=== PATIENT | female | born 1940 | race Caucasian/White ===

== ENCOUNTER 2023-04-28 23:44 | Inpatient (IN) | payer OTHER ==
[~2023-04-28] VITALS: Ht 170.2 cm; Wt 147.9 kg
[2023-04-28 23:44] VITALS: BP_SYST 94; PULSE 117; RESP 21; TEMP 98; O2SAT 97
[~2023-04-28 23:44] MED LIST: APIX5TAB4 PO; CLOT24CR2 TP; DOXY-244 PO; FURO-149 PO; HYDR12.55 PO; LOSA-413 PO; LOVA40TA75 PO; MULT-1117 PO; OMEG100037 PO; TRAM300C3 PO
[2023-04-29] MEDS ORDERED: NACL 0.9% 2,000 ML IV ONE (00:45)
[2023-04-29 00:55] LABS: CLARITY/URINE CLOUDY (CLEAR); COLOR,URINE Y (YELLOW)
[2023-04-29 00:56] LABS: BILIRUBIN,URINE 1+ (NEGATIVE); BLOOD, URINE 1+ (NEGATIVE); GLUCOSE,URINE NEGATIVE (NEGATIVE); KETONES,URINE NEGATIVE (NEGATIVE); LEUKOCYTE ESTERASE ,URINE 1+ (NEGATIVE); NITRITE, URINE POSITIVE (NEGATIVE); PROTEIN URINE TRACE (NEGATIVE)
[2023-04-29 00:57] LABS: UROBILINOGEN,URINE 0.2 (0.2-1.0)
[2023-04-29 01:00] LABS: BACTERIA,URINE MANY /HPF (None Seen); WBC,URINE >100 /HPF (0-3)
[2023-04-29] MEDS ORDERED: LOSA1TAB43 PO (01:01)
[2023-04-29] MEDS ORDERED: APIX5TAB4 PO (01:02)
[2023-04-29] MEDS ORDERED: CALMO120 TP (01:05)
[2023-04-29] MEDS ORDERED: VITA113O5 TP (01:07)
[2023-04-29] MEDS ORDERED: [UNRECOGNIZED DRUG - OTHER] TP (01:09)
[2023-04-29] MEDS ORDERED: LOPE2CAP PO (01:12)
[2023-04-29] MEDS ORDERED: ONDA-8 TL (01:14)
[2023-04-29] MEDS ORDERED: GUAI-1196 PO (01:15)
[2023-04-29 01:20] LABS: ANION GAP 17 (5-15); CALCIUM 7.5 mg/dL (8.4-11.0); CARBON DIOXIDE 23 mmol/L (23-29); CHLORIDE 93 mmol/L (98-107); CREATININE 5.07 mg/dL (0.55-1.30); GLUCOSE 104 mg/dL (74-106); POTASSIUM 3.1 mmol/L (3.5-5.1); SODIUM SERUM 133 mmol/L (136-145); UREA NITROGEN, BLOOD 76 mg/dL (8-21)
[2023-04-29 01:23] LABS: BASOPHILS % (AUTO) 0.4 % (0.0-2.0); EOSINOPHILS # (AUTO) 1.3 K/uL (0.0-0.4); EOSINOPHILS % (AUTO) 12.4 % (0.0-4.0); HEMATOCRIT 43.6 % (36-48); HEMOGLOBIN 14.7 g/dL (12.0-16.0); LYMPHOCYTES # (AUTO) 1.6 K/uL (1.0-5.5); LYMPHOCYTES % (AUTO) 14.9 % (20.5-51.5); MEAN CORPUSCULAR HEMOGLOBIN 29 pg (27-31); MEAN CORPUSCULAR HGB CONC 34 % (32-36); MEAN CORPUSCULAR VOLUME 87 fL (79.0-98.0); MONOCYTES # (AUTO) 0.6 K/uL (0.0-1.0); MONOCYTES % (AUTO) 5.5 % (1.7-9.3); NEUTROPHILS # (AUTO) 7.1 K/uL (1.8-7.7); NEUTROPHILS % (AUTO) 66.8 % (40.0-70.0); PLATELET COUNT (AUTO) 248 K/uL (130-430); RED BLOOD CELL COUNT(AUTO) 5.03 MIL/uL (4.2-6.2); RED CELL DISTRIBUTION WIDTH 17.4 % (9.0-15.0); WHITE BLOOD COUNT (AUTO) 10.7 K/uL (4.8-10.8)
[2023-04-29 01:28] LABS: ALANINE AMINOTRANSFERASE 13 U/L (12-78); ALBUMIN 2.5 g/dL (3.4-4.8); ASPARTATE AMINOTRANSFERASE 16 U/L (10-37); TOTAL BILIRUBIN 0.6 mg/dL (0.0-1.0); TOTAL PROTEIN, SERUM 6.1 g/dL (6.4-8.3)
[2023-04-29] MEDS ORDERED: cefTRIAXone 2 GM VIAL ONE (02:37)
[2023-04-29] MEDS ORDERED: HYDROcodone/ACETAMIN 5-325 MG TAB (NORCO/ VICODIN) PO PRN (03:30)
[2023-04-29] MEDS ORDERED: HYDROcodone/ACETAMIN 10-325 MG TAB PO PRN (03:30)
[2023-04-29] MEDS ORDERED: LORazepam 2 MG/ML VIAL IVP PRN (03:30)
[2023-04-29] MEDS ORDERED: ONDANSETRON 4 MG ODT TAB TL PRN (03:30)
[2023-04-29] MEDS ORDERED: NALOXONE HCL 0.4 MG/ML AMP (NARCAN) IVP PRN ×2 (03:30)
[2023-04-29] MEDS ORDERED: guaiFENesin/DEXTROMETHORPHAN 118 ML PO PRN (03:30)
[2023-04-29] MEDS ORDERED: ACETAMINOPHEN 325 MG TABLET PO PRN (03:30)
[2023-04-29] MEDS ORDERED: ONDANSETRON HCL 4 MG/2 ML VIAL IVP PRN (03:30)
[2023-04-29 04:05] VITALS: BP_SYST 99; PULSE 101; RESP 19; TEMP 97.5
[2023-04-29] MEDS: D5/0.45 NS 1,000 ML IV SCH ×2 (04:39→12:45)
[2023-04-29] MEDS ORDERED: guaiFENesin/DEXTROMETHORPHAN 10 ML UDC PO PRN (07:15)
[2023-04-29 08:00] VITALS: BP_SYST 110; PULSE 91; RESP 17; TEMP 97.3; O2SAT 97
[2023-04-29] MEDS ORDERED: ANTIFUNGAL CLEAR OINTMENT TP SCH (09:00)
[2023-04-29] MEDS ORDERED: HYDROCHLOROTHIAZIDE 12.5 MG CAPSULE (HCTZ) PO SCH (09:00)
[2023-04-29] MEDS ORDERED: NON-FORMULARY MEDICATION (Losartan/Hctz* (Losartan-Hctz 100-12.5 Mg Tab*) 1 EACH) PO SCH (09:00)
[2023-04-29] MEDS ORDERED: LOSARTAN POTASSIUM 50 MG TABLET (COZAAR) PO SCH (09:00)
[2023-04-29] MEDS: APIXABAN 2.5 MG TABLET PO SCH ×2 (10:19→20:21)
[2023-04-29] MEDS: MENTHOL/ZINC OXIDE 113 GM OINT. TP SCH (10:20)
[2023-04-29] MEDS: VITS A AND D TP SCH (10:21)
[2023-04-29] MEDS: LANOLIN TP SCH (10:21)
[2023-04-29] MEDS: WHITE PET TP SCH (10:21)
[2023-04-29 11:30] VITALS: BP_SYST 105; PULSE 100; RESP 19; TEMP 98; O2SAT 98
[2023-04-29] MEDS ORDERED: POTASSIUM CHLORIDE 20 MEQ TAB.PRT.SR PO ONE (14:45)
[2023-04-29] MEDS ORDERED: NYSTATIN 15 GM TOPICAL POWDER TP ONE (14:45)
[2023-04-29 17:30] VITALS: BP_SYST 90; PULSE 102; RESP 18; TEMP 97.8; O2SAT 94
[2023-04-29 20:00] VITALS: BP_SYST 108; PULSE 101; RESP 18; TEMP 97.3; O2SAT 98
[2023-04-29] MEDS: DOXYCYCLINE HYCLATE 100 MG CAPSULE PO SCH (20:21)
[2023-04-30] VITALS: BP_SYST 110; PULSE 98; RESP 17; TEMP 97.8; O2SAT 97
[2023-04-30] MEDS: D5/0.45 NS 1,000 ML IV SCH ×3 (03:24→18:08)
[2023-04-30 04:55] LABS: BASOPHILS % (AUTO) 0.5 % (0.0-2.0); EOSINOPHILS # (AUTO) 1.4 K/uL (0.0-0.4); EOSINOPHILS % (AUTO) 16.9 % (0.0-4.0); HEMATOCRIT 41.2 % (36-48); HEMOGLOBIN 13.3 g/dL (12.0-16.0); LYMPHOCYTES # (AUTO) 1.2 K/uL (1.0-5.5); LYMPHOCYTES % (AUTO) 15.2 % (20.5-51.5); MEAN CORPUSCULAR HEMOGLOBIN 29 pg (27-31); MEAN CORPUSCULAR HGB CONC 32 % (32-36); MEAN CORPUSCULAR VOLUME 88 fL (79.0-98.0); MONOCYTES # (AUTO) 0.7 K/uL (0.0-1.0); MONOCYTES % (AUTO) 9.1 % (1.7-9.3); NEUTROPHILS # (AUTO) 4.7 K/uL (1.8-7.7); NEUTROPHILS % (AUTO) 58.3 % (40.0-70.0); PLATELET COUNT (AUTO) 224 K/uL (130-430); RED BLOOD CELL COUNT(AUTO) 4.66 MIL/uL (4.2-6.2); RED CELL DISTRIBUTION WIDTH 17.4 % (9.0-15.0)
[2023-04-30 05:18] LABS: ALANINE AMINOTRANSFERASE 15 U/L (12-78); ALBUMIN 2.2 g/dL (3.4-4.8); ANION GAP 13 (5-15); ASPARTATE AMINOTRANSFERASE 16 U/L (10-37); CALCIUM 7.5 mg/dL (8.4-11.0); CARBON DIOXIDE 24 mmol/L (23-29); CHLORIDE 98 mmol/L (98-107); CREATININE 3.56 mg/dL (0.55-1.30); GLUCOSE 92 mg/dL (74-106); PHOSPHORUS 5.4 mg/dL (2.7-4.5); POTASSIUM 3.2 mmol/L (3.5-5.1); SODIUM SERUM 135 mmol/L (136-145); TOTAL BILIRUBIN 0.3 mg/dL (0.0-1.0); TOTAL PROTEIN, SERUM 5.4 g/dL (6.4-8.3); UREA NITROGEN, BLOOD 73 mg/dL (8-21)
[2023-04-30 08:00] VITALS: BP_SYST 117; PULSE 80; RESP 16; TEMP 97.3; O2SAT 96
[2023-04-30] MEDS: APIXABAN 2.5 MG TABLET PO SCH ×2 (09:17→20:52)
[2023-04-30] MEDS: DOXYCYCLINE HYCLATE 100 MG CAPSULE PO SCH ×2 (09:18→20:42)
[2023-04-30] MEDS: NYSTATIN 15 GM TOPICAL POWDER TP SCH (09:24)
[2023-04-30] MEDS: MENTHOL/ZINC OXIDE 113 GM OINT. TP SCH (09:25)
[2023-04-30] MEDS: LANOLIN TP SCH (09:26)
[2023-04-30] MEDS: VITS A AND D TP SCH (09:26)
[2023-04-30] MEDS: WHITE PET TP SCH (09:26)
[2023-04-30] MEDS ORDERED: POTASSIUM CHLORIDE 20 MEQ TAB.PRT.SR PO ONE (09:30)
[2023-04-30 12:00] VITALS: BP_SYST 110; PULSE 85; RESP 18; TEMP 98; O2SAT 96
[2023-04-30 16:00] VITALS: BP_SYST 111; PULSE 80; RESP 18; TEMP 97.8; O2SAT 98
[2023-04-30 19:00] VITALS: O2SAT 99
[2023-04-30 20:00] VITALS: BP_SYST 123; PULSE 93; RESP 16; TEMP 98.2; O2SAT 99
[2023-05-01 00:15] VITALS: BP_SYST 116; BP_SYST 125; PULSE 71; RESP 17; TEMP 98.6; O2SAT 98
[2023-05-01 04:21] LABS: ERYTHROCYTE SEDIMENTATION RATE 26 MM/HR (0-20)
[2023-05-01 04:24] LABS: BASOPHILS % (AUTO) 0.5 % (0.0-2.0); EOSINOPHILS # (AUTO) 1.2 K/uL (0.0-0.4); EOSINOPHILS % (AUTO) 16.7 % (0.0-4.0); HEMATOCRIT 41.5 % (36-48); HEMOGLOBIN 13.6 g/dL (12.0-16.0); LYMPHOCYTES # (AUTO) 1.7 K/uL (1.0-5.5); LYMPHOCYTES % (AUTO) 23.4 % (20.5-51.5); MEAN CORPUSCULAR HEMOGLOBIN 29 pg (27-31); MEAN CORPUSCULAR HGB CONC 33 % (32-36); MEAN CORPUSCULAR VOLUME 88 fL (79.0-98.0); MONOCYTES # (AUTO) 0.9 K/uL (0.0-1.0); MONOCYTES % (AUTO) 12.7 % (1.7-9.3); NEUTROPHILS # (AUTO) 3.3 K/uL (1.8-7.7); NEUTROPHILS % (AUTO) 46.7 % (40.0-70.0); PLATELET COUNT (AUTO) 262 K/uL (130-430); RED BLOOD CELL COUNT(AUTO) 4.71 MIL/uL (4.2-6.2); RED CELL DISTRIBUTION WIDTH 17.7 % (9.0-15.0); WHITE BLOOD COUNT (AUTO) 7.2 K/uL (4.8-10.8)
[2023-05-01 04:49] LABS: ANION GAP 10 (5-15); CALCIUM 8.1 mg/dL (8.4-11.0); CARBON DIOXIDE 27 mmol/L (23-29); CHLORIDE 104 mmol/L (98-107); GLUCOSE 91 mg/dL (74-106); POTASSIUM 3.4 mmol/L (3.5-5.1); SODIUM SERUM 141 mmol/L (136-145); UREA NITROGEN, BLOOD 57 mg/dL (8-21)
[2023-05-01] MEDS: D5/0.45 NS 1,000 ML IV SCH ×2 (05:22→23:51)
[2023-05-01 08:00] VITALS: BP_SYST 134; PULSE 98; RESP 16; TEMP 98.1; O2SAT 98
[2023-05-01] MEDS: VITS A AND D TP SCH (09:00)
[2023-05-01] MEDS: LANOLIN TP SCH (09:00)
[2023-05-01] MEDS: MENTHOL/ZINC OXIDE 113 GM OINT. TP SCH (09:00)
[2023-05-01] MEDS: NYSTATIN 15 GM TOPICAL POWDER TP SCH (09:00)
[2023-05-01] MEDS: WHITE PET TP SCH (09:00)
[2023-05-01] MEDS: DOXYCYCLINE HYCLATE 100 MG CAPSULE PO SCH ×2 (09:51→21:03)
[2023-05-01] MEDS: APIXABAN 2.5 MG TABLET PO SCH ×2 (09:52→21:04)
[2023-05-01 11:22] VITALS: BP_SYST 116; PULSE 94; RESP 17; TEMP 97.7; O2SAT 99
[2023-05-01] MEDS: LEVOFLOXACIN 250 MG/D5W 50 ML IV SCH (13:29)
[2023-05-01 16:30] VITALS: BP_SYST 120; PULSE 90; RESP 17; TEMP 98; O2SAT 98
[2023-05-01 20:00] VITALS: BP_SYST 131; PULSE 80; RESP 18; TEMP 97.3; O2SAT 97
[2023-05-01] MEDS: terbinafine HCL 30 GM CREAM.GM. TP SCH (21:09)
[2023-05-02] VITALS (10 sets, daily range): BP systolic 88–150; PULSE 60–112; RESP 16–18; TEMP 97–98.9; O2SAT 93–99
[2023-05-02] MEDS: D5/0.45 NS 1,000 ML IV SCH ×3 (00:45→21:18)
[2023-05-02 05:12] LABS: ANION GAP 9 (5-15); BASOPHILS # (AUTO) 0.1 K/uL (0.0-0.2); BASOPHILS % (AUTO) 0.8 % (0.0-2.0); CALCIUM 8.2 mg/dL (8.4-11.0); CARBON DIOXIDE 27 mmol/L (23-29); CHLORIDE 105 mmol/L (98-107); CREATININE 1.24 mg/dL (0.55-1.30); EOSINOPHILS # (AUTO) 1.1 K/uL (0.0-0.4); EOSINOPHILS % (AUTO) 16.3 % (0.0-4.0); GLUCOSE 141 mg/dL (74-106); HEMATOCRIT 40.7 % (36-48); HEMOGLOBIN 13.4 g/dL (12.0-16.0); LYMPHOCYTES # (AUTO) 1.6 K/uL (1.0-5.5); LYMPHOCYTES % (AUTO) 23.4 % (20.5-51.5); MEAN CORPUSCULAR HEMOGLOBIN 29 pg (27-31); MEAN CORPUSCULAR HGB CONC 33 % (32-36); MEAN CORPUSCULAR VOLUME 88 fL (79.0-98.0); MONOCYTES # (AUTO) 0.8 K/uL (0.0-1.0); MONOCYTES % (AUTO) 11.4 % (1.7-9.3); NEUTROPHILS # (AUTO) 3.3 K/uL (1.8-7.7); NEUTROPHILS % (AUTO) 48.1 % (40.0-70.0); PLATELET COUNT (AUTO) 239 K/uL (130-430); RED BLOOD CELL COUNT(AUTO) 4.61 MIL/uL (4.2-6.2); RED CELL DISTRIBUTION WIDTH 17.2 % (9.0-15.0); SODIUM SERUM 141 mmol/L (136-145); UREA NITROGEN, BLOOD 36 mg/dL (8-21); WHITE BLOOD COUNT (AUTO) 6.9 K/uL (4.8-10.8)
[2023-05-02 05:44] LABS: POTASSIUM 2.9 mmol/L (3.5-5.1)
[2023-05-02] MEDS ORDERED: POTASSIUM CHLORIDE 20 MEQ TAB.PRT.SR PO ONE ×2 (06:15→10:15)
[2023-05-02] MEDS: MENTHOL/ZINC OXIDE 113 GM OINT. TP SCH (08:26)
[2023-05-02] MEDS: DOXYCYCLINE HYCLATE 100 MG CAPSULE PO SCH (08:26)
[2023-05-02] MEDS: terbinafine HCL 30 GM CREAM.GM. TP SCH ×2 (08:27→21:16)
[2023-05-02] MEDS: WHITE PET TP SCH (08:27)
[2023-05-02] MEDS: LANOLIN TP SCH (08:27)
[2023-05-02] MEDS: NYSTATIN 15 GM TOPICAL POWDER TP SCH (08:27)
[2023-05-02] MEDS: VITS A AND D TP SCH (08:27)
[2023-05-02] MEDS: APIXABAN 2.5 MG TABLET PO SCH ×2 (08:29→21:13)
[2023-05-02] MEDS: LEVOFLOXACIN 250 MG/D5W 50 ML IV SCH (14:49)
[2023-05-02] MEDS: ERTAPENEM SODIUM 1 GM in NS 50 ML IV SCH (14:59)
[2023-05-02] MEDS: NITROFURANTOIN MONOHYD/M-CRYST 100 MG CAPSULE (MacroBID) PO SCH (21:12)
[2023-05-02 23:34] LABS: BILIRUBIN,URINE NEGATIVE (NEGATIVE); CLARITY/URINE Clear (CLEAR); COLOR,URINE YELLOW (YELLOW); GLUCOSE,URINE NEGATIVE (NEGATIVE); NITRITE, URINE NEGATIVE (NEGATIVE); PH,URINE 5.5 (5.0-8.0); PROTEIN URINE NEGATIVE (NEGATIVE); UROBILINOGEN,URINE 0.2 (0.2-1.0)
[2023-05-02 23:49] LABS: KETONES,URINE NEGATIVE (NEGATIVE)
[2023-05-02 23:50] LABS: BLOOD, URINE TRACE (NEGATIVE); LEUKOCYTE ESTERASE ,URINE NEGATIVE (NEGATIVE)
[2023-05-03 00:10] LABS: BACTERIA,URINE RARE /HPF (None Seen); WBC,URINE 0-3 /HPF (0-3); YEAST,URINE Few /HPF (None Seen)
[2023-05-03 00:32] VITALS: BP_SYST 140; PULSE 70; RESP 19; TEMP 96.1; O2SAT 97
[2023-05-03 08:00] VITALS: BP_SYST 127; PULSE 87; RESP 16; TEMP 97.1; O2SAT 96
[2023-05-03] MEDS: D5/0.45 NS 1,000 ML IV SCH (09:03)
[2023-05-03] MEDS: APIXABAN 2.5 MG TABLET PO SCH (09:04)
[2023-05-03] MEDS: NYSTATIN 15 GM TOPICAL POWDER TP SCH (09:10)
[2023-05-03] MEDS: MENTHOL/ZINC OXIDE 113 GM OINT. TP SCH (09:10)
[2023-05-03] MEDS: NITROFURANTOIN MONOHYD/M-CRYST 100 MG CAPSULE (MacroBID) PO SCH (09:28)
[2023-05-03] MEDS: terbinafine HCL 30 GM CREAM.GM. TP SCH (09:29)
[2023-05-03] MEDS: WHITE PET TP SCH (09:30)
[2023-05-03] MEDS: VITS A AND D TP SCH (09:30)
[2023-05-03] MEDS: LANOLIN TP SCH (09:30)
[2023-05-03 10:13] LABS: BASOPHILS % (AUTO) 0.7 % (0.0-2.0); EOSINOPHILS # (AUTO) 1.4 K/uL (0.0-0.4); HEMATOCRIT 41.1 % (36-48); HEMOGLOBIN 13.5 g/dL (12.0-16.0); LYMPHOCYTES # (AUTO) 1.3 K/uL (1.0-5.5); LYMPHOCYTES % (AUTO) 19.7 % (20.5-51.5); MEAN CORPUSCULAR HEMOGLOBIN 29 pg (27-31); MEAN CORPUSCULAR HGB CONC 33 % (32-36); MEAN CORPUSCULAR VOLUME 88 fL (79.0-98.0); MONOCYTES # (AUTO) 0.5 K/uL (0.0-1.0); MONOCYTES % (AUTO) 7.7 % (1.7-9.3); NEUTROPHILS # (AUTO) 3.4 K/uL (1.8-7.7); NEUTROPHILS % (AUTO) 50.9 % (40.0-70.0); PLATELET COUNT (AUTO) 251 K/uL (130-430); RED BLOOD CELL COUNT(AUTO) 4.66 MIL/uL (4.2-6.2); RED CELL DISTRIBUTION WIDTH 17.5 % (9.0-15.0); WHITE BLOOD COUNT (AUTO) 6.8 K/uL (4.8-10.8)
[2023-05-03 10:24] LABS: ANION GAP 6 (5-15); CALCIUM 8.2 mg/dL (8.4-11.0); CARBON DIOXIDE 28 mmol/L (23-29); CHLORIDE 107 mmol/L (98-107); CREATININE 1.09 mg/dL (0.55-1.30); GLUCOSE 157 mg/dL (74-106); POTASSIUM 3.6 mmol/L (3.5-5.1); SODIUM SERUM 141 mmol/L (136-145); UREA NITROGEN, BLOOD 20 mg/dL (8-21)
[2023-05-03 11:35] VITALS: BP_SYST 135; PULSE 72; RESP 18; TEMP 97; O2SAT 99
[2023-05-03 12:00] VITALS: BP_SYST 135; PULSE 72; RESP 18; TEMP 97; O2SAT 99
[2023-05-03] MEDS: ERTAPENEM SODIUM 1 GM in NS 50 ML IV SCH (12:11)
[2023-05-03] MEDS ORDERED: LEVO250T73 PO (12:20)
[2023-05-03] MEDS ORDERED: NITR-85 PO (12:20)
[2023-05-03 13:05] VITALS: O2SAT 97
== END 2023-05-03 20:50 | DRG 682 ==
LOC: SED 23:44 → SMU 04-29 02:38
PROVIDERS: ADMIT Specialist; ATTEND Specialist
PROC: 05HY33Z Insertion of Infusion Device into Upper Vein, Percutaneous Approach (ICD-10-PCS; principal; 2023-05-02)
PROC: B54MZZA Ultrasonography of Right Upper Extremity Veins, Guidance (ICD-10-PCS; 2023-05-02)
DX: N17.0 Acute kidney failure with tubular necrosis (principal); E43 Unspecified severe protein-calorie malnutrition; R65.11 Systemic inflammatory response syndrome (SIRS) of non-infectious origin with acute organ dysfunction; N39.0 Urinary tract infection, site not specified; E87.0 Hyperosmolality and hypernatremia; L03.116 Cellulitis of left lower limb; L03.115 Cellulitis of right lower limb; Z68.43 Body mass index [BMI] 50.0-59.9, adult; E87.5 Hyperkalemia; E83.52 Hypercalcemia; E83.39 Other disorders of phosphorus metabolism; I48.91 Unspecified atrial fibrillation; I25.10 Atherosclerotic heart disease of native coronary artery without angina pectoris; E80.6 Other disorders of bilirubin metabolism; E66.01 Morbid (severe) obesity due to excess calories; I87.2 Venous insufficiency (chronic) (peripheral); I12.9 Hypertensive chronic kidney disease with stage 1 through stage 4 chronic kidney disease, or unspecified chronic kidney disease; N18.9 Chronic kidney disease, unspecified; Z79.01 Long term (current) use of anticoagulants
CPT/HCPCS: 36415; 71045; 76770; 80048; 80053; 81000; 82570; 83605; 83735; 84100; 84302; 85025; 85651-TC; 87040; 87086; 93005; 93306; 93923; 97110-GP; 97163-GP; 97530-GP; 99285; J0696; J1335; J1956; J7060